=== PATIENT | male | born 1995 | race Caucasian/White ===

== ENCOUNTER 2021-04-27 13:17 | Emergency (ER) | payer OTHER, SELFPAY ==
--- NOTE | 2021-04-27 13:32 | ECG_ITS ---
Measurements Intervals [place] Rate: 104 P: 66 VA: 140 QRS: 64 QRSD: 100 T: 51 QT: 325 QTc: 429 Interpretive Statements SINUS TACHYCARDIA DELAYED PRECORDIAL R/S TRANSITION MINIMAL Q WAVES- INFERIOR LEADS BORDERLINE ECG Electronically Signed On 04-27-2021 16:53:08 LOCK PLATER by Waldemar Phan D.O.
[2021-04-27 13:36] VITALS: BP 144/86; PULSE 98; RESP 16; TEMP 36.8; O2SAT 97
[2021-04-27 15:44] VITALS: BP 113/72; BP 119/77; PULSE 88; PULSE 90
[2021-04-27 15:45] VITALS: BP 110/75; PULSE 87
--- NOTE | 2021-04-27 16:26 | ED.GENADULT ---
HPI - General Adult General Chief complaint: Unspecified <MARIAH Li Last Filed: 04/27/21 16:30> Stated complaint: limb numbness/diff breathing <MARIAH Li Last Filed: 04/27/21 16:30> Time Seen by Provider: 04/27/21 14:47 <MARIAH Li Last Filed: 04/27/21 16:30> Source: patient <MARIAH Li Last Filed: 04/27/21 16:30> Mode of arrival: ambulatory <MARIAH Li Last Filed: 04/27/21 16:30> Limitations: no limitations <MARIAH Li Filed: 04/27/21 16:30> History of Present Illness HPI narrative: Patient with history of anxiety presents with chief complaint of feeling tingling to his extremities. Patient reports when he moves he feels that his heart is beating faster. Patient reports that this makes him concerned that his heart is not perfusing his extremities. Patient denies moderate function or sensation intact extremities. Patient denies any cyanosis or other abnormalities. Patient denies chest pain. Patient denies any wheezing, fever, cough or hypoxia. Patient states that he mentioned to the nurse that he had some swelling to his testicles that have been present for 2 to 3 years. Patient is under the management of urology and was told that there are varicose veins. Patient does not have any testicular pain, UTIs or urinary change, discharge or other signs of burning. <MARIAH Li Last Filed: 04/27/21 16:30> Related Data Home medications: Home Medications Medication Instructions Recorded Confirmed buspirone 30 mg tablet 30 mg PO TID tablet 02/08/20 08/22/20 omeprazole 40 mg capsule,delayed 40 mg PO DAILY PRN 02/08/20 08/22/20 release <MARIAH Li Last Filed: 04/27/21 16:30> Allergies/adverse reactions: Allergies Allergy/AdvReac Type Severity Reaction Status Date / Time lactase Allergy Unknown Nausea Verified 11/10/20 11:47 <MARIAH Li Last Filed: 04/27/21 16:30> Review of Systems Review of Systems: CONSTITUTIONAL: Denies fever, chills, or sweats. EYES: Denies visual changes, redness, or discharge. ENT: Denies rhinorrhea, congestion, sore throat, or otalgia. CARDIOVASCULAR: Denies chest pain, palpitations, or edema. RESPIRATORY: Denies cough or dyspnea. GASTROINTESTINAL: Denies abdominal pain, nausea, vomiting, or diarrhea. GENITOURINARY: Denies dysuria or hematuria. SKIN: Denies rash or itching. MUSCULOSKELETAL: Denies back pain, joint pain, or myalgia. NEUROLOGIC: Denies headache, numbness, dizziness, or weakness. PSYCHIATRIC: Reports anxiety <Anika Mckeon PA-C - Last Filed: 04/27/21 16:30> PMFSH Past Medical History Medical History: Medical History (Updated 04/27/21 @ 16:30 by Anika Mckeon PA-C) Anxiety GERD (gastroesophageal reflux disease) Narcolepsy without cataplexy <Anika Mckeon PA-C - Last Filed: 04/27/21 16:30> Social History Social History: Social History Smoking status: Never smoker Alcohol intake: never <Anika Mckeon PA-C - Last Filed: 04/27/21 16:30> Exam Narrative: GENERAL: Well-appearing, well-nourished, and in no acute distress. HEAD: Normocephalic, atraumatic. EYES: PERRLA and EOMI. CHEST: Clear to auscultation. No respiratory distress. No wheezes rales or rhonchi HEART: Regular rate and rhythm. No murmur heard. Normal peripheral pulses.. ABDOMEN: Soft, nontender, nondistended, normal active bowel sounds. EXTREMITIES: Normal range of motion. No edema. No cyanosis or other signs of perfusion abnormality. SKIN: Warm, dry, no rash. NEURO: No focal deficits. Alert and oriented x3. PSYCH: Normal mood and affect. <Anika Mckeon PA-C - Last Filed: 04/27/21 16:30> Course DISASTER RECOVERY ANALYST/PA Physician Supervision I did not see this patient nor was the care plan discussed with me. I was available for evaluation and consultation, I agree with the d
== END 2021-04-27 16:35 | disposition home or self-care (01) ==
PROVIDERS: Emergency Provider Emergency Medicine; PCP Family Medicine
DX: R20.2 Paresthesia of skin (principal); K21.9 Gastro-esophageal reflux disease without esophagitis; G47.419 Narcolepsy without cataplexy; F41.9 Anxiety disorder, unspecified; R00.0 Tachycardia, unspecified
CPT/HCPCS: 93005; 99283

== ENCOUNTER 2021-06-20 10:05 | Outpatient (CLI) | payer OTHER, SELFPAY ==
--- NOTE | 2021-06-20 13:38 | WPDPFTINT ---
PFT Procedure Performed PFT Procedure Performed Spirometry with Pre/Post Bronchodilator Plethysmography (Lung Vol) Diffusing Cap (DLCO) Flow Vol Loop PFT Interpretation Lung volumes were measured with the body plethysmography method. Lung volumes are unremarkable. Spirometry showed normal expiratory flow rates and a normal FEV1 to FVC ratio 72%. Following administration of a bronchodilator there was no significant increase in the expiratory flow rates. Lung diffusion capacity is borderline normal. Impression: Spirometry, lung volumes, and lung diffusion capacity all within the normal range.
== END 2021-06-20 10:06 | disposition home or self-care (01) ==
PROVIDERS: PCP Family Medicine; Visit Provider Internal Medicine Critical Care Medicine
DX: R06.02 Shortness of breath (principal)
CPT/HCPCS: 94060; 94726; 94729

== ENCOUNTER 2021-09-28 14:56 | Outpatient (CLI) | payer OTHER, SELFPAY ==
--- NOTE | ~2021-09-28 | XR_ITS ---
XR chest 2V DATE: 09/28/2021 15:09 INDICATION: Sternal pain. No injury. TECHNIQUE: 2 views COMPARISON: 01/06/2019 PA and lateral chest FINDINGS: Normal heart size. No hilar or mediastinal enlargement. No pulmonary infiltrate or consolid ation, pleural effusion or pulmonary vascular congestion or pneumothorax. There is minimal thoracic scoliosis. IMPRESSION: No active cardiopulmonary disease Reviewed, dictated and finalized at location B.
== END 2021-09-28 14:57 | disposition home or self-care (01) ==
PROVIDERS: PCP Family Medicine; Visit Provider Physician Assistant
DX: R07.89 Other chest pain (principal)
CPT/HCPCS: 71046

== ENCOUNTER 2022-02-03 08:57 | Emergency (ER) | payer OTHER, SELFPAY ==
[2022-02-03] VITALS (20 sets, daily range): BP systolic 111–140; BP diastolic 76–83; PULSE 59–93; RESP 8–20; TEMP 36.8; O2SAT 97–100
--- NOTE | ~2022-02-03 | XR_ITS ---
EXAMINATION: XR chest 2V DATE: 02/03/2022 11:15 INDICATION: Shortness of breath. Chest pain. TECHNIQUE: Frontal and lateral views of the chest were obtained. COMPARISON: Chest 2 views 09/28/2021, CT abdomen and pelvis 04/01/2017 FINDINGS: The chest demonstrates clear lungs without pneumonia, pleural effusion, or pneumothorax. Th e heart size is normal. IMPRESSION: 1. No acute cardiopulmonary disease. Reviewed, dictated and finalized at location A.
--- NOTE | 2022-02-03 09:10 | ECG_ITS ---
Measurements Intervals [place] Rate: 95 P: 59 NM: 127 QRS: 70 QRSD: 102 T: 62 QT: 325 QTc: 410 Interpretive Statements SINUS RHYTHM DELAYED PRECORDIAL R/S TRANSITION BASELINE ARTIFACT- I, II, III, AVR, AVL BORDERLINE ECG COMPARED TO ECG 04/27/2021 13:32:14 HR HAS DECREASED Electronically Signed On 02-03-2022 10:15:11 CDT by Waldemar Phan D.O.
--- NOTE | 2022-02-03 10:31 | ED.SOB ---
HPI - SOB/Dyspnea General Chief Complaint: Shortness of Breath/Dyspnea <MARIAH Taveras Last Filed: 02/03/22 16:49> Stated Complaint: sob <MARIAH Taveras Last Filed: 02/03/22 16:49> Time Seen by Provider: 02/03/22 10:21 <MARIAH Taveras Last Filed: 02/03/22 16:49> Source: patient <MARIAH Taveras Last Filed: 02/03/22 16:49> Mode of arrival: ambulatory <MARIAH Taveras Last Filed: 02/03/22 16:49> Limitations: no limitations <MARIAH Taveras Last Filed: 02/03/22 16:49> History of Present Illness HPI Narrative: Patient is a 26 y/o male who presents to the ED with c/o SOB. Patient reports he woke up around 4 or 5 AM this morning with shortness of breath. He states he had difficulty catching his breath and would feel like he almost stopped breathing at times. He does note a history of anxiety and has had previous panic attacks which he states felt somewhat similar. He did take his hydroxyzine last night as he usually does. He reports having intermittent midsternal chest pain for the last several months, which his PCP is aware of and has prescribed naproxen for. He denied any change in the chest pain this morning with his shortness of breath. Denies any recent fever, cough, cold symptoms, nausea, vomiting, abdominal pain, BLE pain or edema. <MARIAH Taveras Last Filed: 02/03/22 16:49> Related Data Allergies/Adverse Reactions: Allergies Allergy/AdvReac Type Severity Reaction Status Date / Time lactase Allergy Unknown Nausea Verified 02/03/22 10:52 <MARIAH Taveras Last Filed: 02/03/22 16:49> Review of Systems Review of Systems: CONSTITUTIONAL: Denies fever, chills, or sweats. CARDIOVASCULAR: Reports CP, palpitations. Denies BLE edema. RESPIRATORY: Reports SOB. Denies cough. GASTROINTESTINAL: Denies abdominal pain, nausea, vomiting. PSYCHIATRIC: Reports anxiety. <Flakita Diaz PA-C - Last Filed: 02/03/22 16:49> All systems reviewed & are unremarkable except as noted in HPI and below <Flakita Diaz PA-C - Last Filed: 02/03/22 16:49> PMFSH Past Medical History Medical History: Medical History Anxiety GERD (gastroesophageal reflux disease) Narcolepsy without cataplexy <Flakita Diaz PA-C - Last Filed: 02/03/22 16:49> Surgical History Surgical History: Surgical History No pertinent past surgical history <Falkita Diaz PA-C - Last Filed: 02/03/22 16:49> Social History Social History: Social History (Updated 02/03/22 @ 15:12 by Flakita Diaz PA-C) Smoking status: Never smoker Alcohol intake: never Substance use: never <Flakita Diaz PA-C - Last Filed: 02/03/22 16:49> Exam Narrative: GENERAL: Well appearing, well-nourished, non-toxic, in no acute distress. HEAD: Normocephalic, atraumatic. NECK: Supple. No adenopathy, no masses. RESPIRATORY: Airway patent, respirations nonlabored. Clear to auscultation bilaterally, no rales, rhonchi, wheezing. CARDIOVASCULAR: Regular rate and rhythm without murmurs, rubs, or gallops. Peripheral pulses 2+ and equal bilaterally. ABDOMINAL: Soft, nontender, nondistended, no hepatosplenomegaly. Normoactive BS. MUSCULOSKELETAL: Moves all extremities. Strength/ROM intact without gross deformities or TTP. No edema. No calf tenderness. Mild, midsternal anterior chest wall tenderness to palpation. SKIN: Warm, dry, normal color. No rashes. NEURO: A&O X3. Speech clear. Cranial nerves II-XII grossly intact. Steady gait. No ataxic movements. PSYCHIATRIC: Somewhat flat affect, anxious. Normal interaction. <Flakita Diaz PA-C - Last Filed: 02/03/22 16:49> Course Vital Signs Vital signs: Vital Signs Temperature 98.3 F 02/03/22 09:10 Pulse
[2022-02-03 11:11] LABS: Basophils Percent Auto 0.2 % (0.2-1.2); Hematocrit 43.6 % (42.0-52.0); Hemoglobin 15.1 g/dL (14.0-18.0); Immature Granulocyte Absolute 0.01 K/mm3 (0.00-0.031); Immature Granulocyte Percent A 0.2 % (0-0.5); Lymphocytes Absolute Auto 1.64 K/mm3 (0.9-3.2); Lymphocytes Percent Auto 28.2 % (18.3-44.2); Mean Corpuscular HGB Conc 34.6 g/dl (32-36); Mean Corpuscular Hemoglobin 28.6 pg (26-34); Mean Corpuscular Volume 82.6 fl (80-100); Mean Platelet Volume 10.8 fl (7.4-10.4); Monocytes Absolute Auto 0.2 K/mm3 (0.1-0.6); Monocytes Percent Auto 3.4 % (2.6-8.5); Platelet Count Result 231 k/mm3 (150-375); Red Blood Count 5.28 M/mm3 (4.6-6.20); Red Cell Distribution Width 12.3 % (11.5-14.5); White Blood Count 5.8 K/mm3 (4.5-10.0)
[2022-02-03 11:20] LABS: Alanine Aminotransferase 21 U/L (6-50); Albumin Level 4.8 g/dL (3.5-5.1); Alkaline Phosphatase 90 U/L (38-126); Anion Gap 13 mmol/L (8-16); Aspartate Amino Transferase 23 U/L (17-59); Bilirubin,Total 0.6 mg/dL (0.2-1.3); Blood Urea Nitrogen 18 mg/dL (9-20); Calcium 9.2 mg/dL (8.4-10.2); Carbon Dioxide 25 mmol/L (22-30); Chloride 104 mmol/L (98-107); Estimated CRCL calculation 102 ml/min; Estimated Glomerular Filt Rate > 60; Glucose 102 mg/dL (65-110); Potassium 4.4 mmol/L (3.4-5.0); Sodium 142 mmol/L (137-145)
[2022-02-03 11:32] LABS: Troponin I < 0.012 ng/mL (0.000-0.034)
[2022-02-03 11:33] LABS: Magnesium 1.9 mg/dL (1.6-2.3)
[2022-02-03 11:53] LABS: D Dimer < 0.27 ug/mL (<0.48)
[2022-02-03 14:10] LABS: Acetaminophen < 10 ug/mL (10-30); Ethanol < 10 mg/dL (<10); Salicylate < 1.0 mg/dL (2-20)
[2022-02-03 14:24] LABS: Appearance Urine Clear (Clear); Bilirubin Urine Negative (Negative); Blood Urine Negative (Negative); Color Urine Yellow (Yellow); Glucose Urine UA Negative (Negative); Ketones Urine Negative (Negative); Leukocyte Esterase Ur Negative LEU/UL (Negative); Nitrate Urine Negative (Negative); Protein Urine Negative (Negative)
[2022-02-03 14:27] LABS: Mucus Urine Few /lpf; RBC Urine 0-2 /hpf (0-2); Squamous Epithelial Cell Urine Rare /hpf (Few); WBC Urine 0-3 /hpf
[2022-02-03 14:30] LABS: Add Urine Microscopic? NO
[2022-02-03 14:41] LABS: Thyroid Stimulating Hormone 0.414 uIU/mL (0.465-4.680)
[2022-02-03 14:43] LABS: Amphetamine Screen Urine Negative (Negative); Barbiturate Screen Urine Negative (Negative); Benzodiazepines Screen Urine Negative (Negative); Cannabinoid Screen Urine Negative (Negative); Cocaine Screen Urine Negative (Negative); Methadone Screen Urine Negative (Negative); Opiate Screen Urine Negative (Negative); Phencyclidine Screen Urine Negative (Negative)
[2022-02-03 15:00] LABS: SARS-CoV-2 RNA PCR Negative
== END 2022-02-03 16:40 | disposition home or self-care (01) ==
PROVIDERS: Physician Assistant; Emergency Provider General Practice; PCP Family Medicine
DX: R06.02 Shortness of breath (principal); R07.89 Other chest pain; F41.9 Anxiety disorder, unspecified; K21.9 Gastro-esophageal reflux disease without esophagitis; G47.419 Narcolepsy without cataplexy; Z20.822 Contact with and (suspected) exposure to COVID-19
CPT/HCPCS: 36415; 71046; 80053; 80307; 81003; 83735; 84443; 84484; 85025; 85380; 93005; 99284; C9803; U0003; U0005

== ENCOUNTER 2022-05-25 09:25 | Outpatient (CLI) | payer OTHER, SELFPAY ==
--- NOTE | ~2022-05-25 | US_ITS ---
Abdominal Sonogram: Real-time sonographic imaging of the abdomen was performed. Clinical History: Abdominal pain Findings: The liver appears normal with no evidence of mass lesion or bile duct dilatation. Main por evette vein demonstrates normal direction of flow. The spleen is normal in size without evidence of foca l lesion. The gallbladder is well distended, and appears normal with no evidence of gallstone or wal l thickening. The common bile duct measures 4 mm. The visualized pancreas, aorta, and IVC are unrema rkable. The right kidney measures 9.4 cm in length and the left kidney measures 10.7 cm. There is n o hydronephrosis or renal calculus. Impression: Unremarkable abdominal ultrasound. Reviewed, dictated and finalized at location . DING SPECIALIST Impression: Unremarkable abdominal ultrasound.
== END 2022-05-25 09:26 | disposition home or self-care (01) ==
PROVIDERS: PCP Family Medicine; Visit Provider Internal Medicine Gastroenterology
DX: R10.9 Unspecified abdominal pain (principal); K59.09 Other constipation
CPT/HCPCS: 76700

== ENCOUNTER 2022-06-06 01:33 | Day surgery (SDC) | payer OTHER, SELFPAY ==
[2022-05-24 12:54] VITALS: BMI 24.4
[2022-06-06 07:11] VITALS: BP 123/80; PULSE 106; RESP 18; TEMP 36.5; O2SAT 98
[2022-06-06] MEDS: LACTATED RINGERS 1,000 ML 150 ML IV CONT (07:13)
--- NOTE | 2022-06-06 08:16 | WPDHPUPDATE1 ---
History and Physical Update Update Date/Time: 06/06/22 08:16 History and Physical has been reviewed, including an updated exam of the patient. There are NO changes in the patient's condition. Risks, benefits, and alternatives have been discussed and questions answered. Patient agrees to proceed with procedure.
--- NOTE | 2022-06-06 08:18 | WPDANESEPPF ---
Anes - Initial Pre Proc Eval Procedure: Operation Date: 06/06/22 08:30 Proposed Procedures p Colonoscopy - Talat Damon MD Date/Time: 06/06/22 08:18 Surgeon: Talat Damon MD Pre Op Diagnosis: change in bowel habits, Abdominal pain Patient Data Age: 27 Gender: M Height: 1.78 m Weight: 76.7 kg Last Vital Signs Temp 97.7 F 06/06/22 07:11 Pulse 106 H 06/06/22 07:11 Resp 18 06/06/22 07:11 BP 123/80 06/06/22 07:11 Pulse Ox 98 06/06/22 07:11 O2 Del Method Room Air 06/06/22 07:11 Allergies Allergy/AdvReac Type Severity Reaction Status Date / Time lactase Allergy Unknown Nausea Verified 06/06/22 07:09 Home Medications Medication Instructions Recorded Confirmed Type dicyclomine 10 mg capsule 10 mg PO TID #30 caps 05/05/20 06/06/22 Rx naproxen 500 mg tablet 500 mg PO BID PRN pain #180 tabs 01/19/22 06/06/22 Rx pantoprazole 40 mg tablet,delayed 40 mg PO QHS 8 weeks #90 tabs 01/19/22 06/06/22 Rx release sertraline 50 mg tablet 50 mg PO DAILY #90 tabs 01/19/22 06/06/22 Rx linaclotide 145 mcg capsule 145 mcg PO PRN PRN Constipation 05/24/22 06/06/22 History (Dwights) Patient hx anesthesia problems: none Family hx anesthesia problems: none Results Review: All pre-operative results and documents have been reviewed as part of the pre-operative evaluation. [facility] Past Medical History Medical History (Updated 05/10/22 @ 09:06 by Talat Damon MD) Anxiety Change in bowel function GERD (gastroesophageal reflux disease) Kidney stone on right side Left lateral abdominal pain Narcolepsy without cataplexy Surgical History Surgical History No pertinent past surgical history Social History Social History (Updated 04/30/22 @ 10:51 by Jessica Liu MA) Smoking status: Never smoker Alcohol intake: never Substance use: never Lack of Transportation: No Lack of Food: Never True Current Housing: I Have Housing Concerned About Future Housing: No Difficulty Paying Gas/Electric Bills: No Currently Unemployed: No Education: High School Diploma/GED Difficulty w/ Childcare or Family Care: No Living arrangements: alone Anes - Eval Final PreProcedure Day of Procedure 06/06/22 08:18 Patient weight: normal Heart: regular rate and rhythm Lungs: clear to auscultation Airway: Mallampati scale class II Neurological: alert and oriented Last oral intake: >/= 8 hours ASA classification: II Emergent: no Anesthetic plan: proceed Anesthesia type and monitoring: general GIVS and standard monitoring Results Review: All pre-operative results and documents have been reviewed as part of the pre-operative evaluation. Informed Consent: The patient's anesthetic plan and its attendant risks and benefits were discussed with the patient/family/POA. Questions were solicited and answers provided to the satisfaction of the patient/family/POA.
[2022-06-06 08:36] VITALS: BP 118/79; PULSE 91; RESP 17; O2SAT 98
[2022-06-06 08:46] VITALS: BP 110/80; PULSE 77; RESP 23; O2SAT 98
[2022-06-06 08:56] VITALS: BP 114/78; PULSE 73; RESP 18; O2SAT 99
== END 2022-06-06 09:04 | disposition home or self-care (01) ==
PROVIDERS: PCP Family Medicine; Visit Provider Internal Medicine Gastroenterology
PROC: 0DJD8ZZ Inspection of Lower Intestinal Tract, Via Natural or Artificial Opening Endoscopic (ICD-10-PCS; CPT 45378; principal; 2022-06-06 08:30)
DX: K59.00 Constipation, unspecified (principal); Z79.1 Long term (current) use of non-steroidal anti-inflammatories (NSAID); F41.9 Anxiety disorder, unspecified; K21.9 Gastro-esophageal reflux disease without esophagitis; Z79.899 Other long term (current) drug therapy
CPT/HCPCS: 45378; J2704; J7120

== ENCOUNTER 2023-11-04 14:34 | Emergency (ER) | payer OTHER, SELFPAY ==
[2023-11-04 14:44] VITALS: BP 109/79; PULSE 95; RESP 18; TEMP 36.1; O2SAT 98
[2023-11-04 14:48] VITALS: BP 109/79; PULSE 95; RESP 18; TEMP 36.1; O2SAT 98
--- NOTE | 2023-11-04 15:05 | ED.BACK ---
HPI - Back Pain/Injury General Chief Complaint: Back Pain/Injury Stated Complaint: Back Pain Time Seen by Provider: 11/04/23 14:55 Source: patient and RN notes reviewed Mode of arrival: ambulatory Limitations: no limitations History of Present Illness HPI Narrative: Patient presents today complaining a 2 day history of bilateral low back pain after lifting a chair that was approximately 60 lb. Occasional radiation to bilateral legs. Denies numbness or tingling. Denies loss of bowel or bladder control. At rest, currently rates his pain 4/10 which increases when he is sitting. Patient has occasional sharp pains that he rates 7/10. He has been taking ibuprofen without relief. Related Data Allergies Allergy/AdvReac Type Severity Reaction Status Date / Time lactose Allergy Mild Nausea Verified 11/04/23 15:18 Review of Systems Review of Systems: CONSTITUTIONAL: Denies body aches, fever, chills, or sweats. EYES: Denies visual changes, redness, or discharge. ENT: Denies rhinorrhea, congestion, sore throat, or otalgia. CARDIOVASCULAR: Denies chest pain, palpitations, or edema. RESPIRATORY: Denies cough or dyspnea. GASTROINTESTINAL: Denies abdominal pain, nausea, vomiting, or diarrhea. GENITOURINARY: Denies dysuria or hematuria. SKIN: Denies rash, itching, or wounds. MUSCULOSKELETAL: Denies joint pain, or myalgia.+ low back pain NEUROLOGIC: Denies headache, numbness, tingling, or weakness. PSYCH: Denies depression or anxiety. [facility] Past Medical History Medical History Anxiety Change in bowel function GERD (gastroesophageal reflux disease) Irritable bowel syndrome with constipation Kidney stone on right side Left lateral abdominal pain Narcolepsy without cataplexy Surgical History Surgical History No pertinent past surgical history Social History Social History Smoking status: Never smoker Alcohol intake: never Substance use: never Lack of Transportation: No Lack of Food: Never True Current Housing: I Have Housing Concerned About Future Housing: No Difficulty Paying Gas/Electric Bills: No Difficulty Paying for Meds: No Currently Unemployed: No Education: High School Diploma/GED Difficulty w/ Childcare or Family Care: No Living arrangements: alone Comments At time of signature, I have reviewed and agree with nursing past medical, surgical, social and family history unless otherwise noted. Please see nursing chart for further information. There is no relevant family history pertinent to the presenting complaint Exam Narrative: GENERAL: Well-appearing, well-nourished, and in no acute distress. HEAD: Normocephalic, atraumatic. EYES: EOMI. No redness or drainage. Conjunctivae normal. ENT: Mucous membranes pink and moist. NECK: Normal AROM. CHEST: No respiratory distress. MUSCULOSKELETAL: No spinal tenderness. No tenderness to the bilateral lumbar paraspinal muscles. Patient localizes his pain in bilateral lower lumbar paraspinal muscle area. No tenderness to the SI joints. Distal sensation intact. Capillary refill. Saddle sensation intact. Dorsiflexion and plantar flexion equal and strong against resistance. Patellar reflexes 2+ bilaterally EXTREMITIES: Normal range of motion. No edema. SKIN: Warm, dry, no rash. Capillary refill normal. Normal skin turgor. NEURO: No focal deficits. Alert and oriented x3. Gait steady. PSYCH: Normal affect. No signs of depression or anxiety. Course Course Level of Care: Express Care Visit Vital Signs Vital signs: Vital Signs Temperature 97.0 F L 11/04/23 14:44 Pulse Rate 95 11/04/23 14:44 Respiratory Rate 18 11/04/23 14:44 Blood Pressure 109/79 11/04/23 14:44 Pulse Oximetry 98 11/04/23 14:44 Oxygen Delivery Room Air 11/04/23 14:44
== END 2023-11-04 15:18 | disposition home or self-care (01) ==
PROVIDERS: Emergency Provider Nurse Practitioner; PCP Family Medicine
DX: S39.012A Strain of muscle, fascia and tendon of lower back, initial encounter (principal); X50.0XXA Overexertion from strenuous movement or load, initial encounter; K21.9 Gastro-esophageal reflux disease without esophagitis; F41.9 Anxiety disorder, unspecified
CPT/HCPCS: 99213; G0463

== ENCOUNTER 2024-11-09 17:29 | Outpatient (CLI) | payer OTHER, SELFPAY ==
--- NOTE | ~2024-11-09 | XR_ITS ---
EXAM/ PROCEDURE: [id number] - 11/09/2024 17:35 CDT HISTORY: 29 years old Male with M54.2 - Cervicalgia M54.2 - Cervicalgia COMPARISON: None available TECHNIQUE: Three view(s) FINDINGS/ IMPRESSION: There are no fractures or dislocations.Intervertebral disc spaces are within normal limits. Visualize d portion of lungs are clear. Reviewed, dictated and finalized at location A.
== END 2024-11-09 17:30 | disposition home or self-care (01) ==
PROVIDERS: PCP Family Medicine; Visit Provider Nurse Practitioner Family
DX: M54.2 Cervicalgia (principal)
CPT/HCPCS: 72040